=== PATIENT | male | born 1985 | race Caucasian/White ===

== ENCOUNTER 2018-11-02 03:11 | Emergency (ER) | payer BC ==
[2018-11-02 04:14] LABS: Absolute Lymphocytes (CBC) 0.9 K/uL (0.7-4.9); Absolute Monocytes 0.9 K/uL (0.1-1.3); Absolute Neutrophil 11.3 K/uL (1.8-8.0); Basophils % 0.3 % (0-1.3); Eosinophils % 0.7 % (0-4.4); Hematocrit 48.1 % (39.6-49.0); Lymphocytes % 7.1 % (15.3-44.8); MPV 7.8 fL (7.6-11.3); Monocytes % 6.6 % (3.3-12.3); RBC Red Blood Cell Count 5.49 M/uL (4.33-5.43)
[2018-11-02 04:29] LABS: Albumin 3.9 g/dL (3.4-5.0); Bilirubin Direct 0.2 mg/dL (0-0.2); Bilirubin Total 0.9 mg/dL (0.2-1.0); Potassium 3.9 mmol/L (3.5-5.1); Protein, Total 7.1 g/dL (6.4-8.2)
[2018-11-02] MEDS ORDERED: NA CHLORIDE 0.9% 1,000 ML ONE (04:38)
[2018-11-02] MEDS ORDERED: KETOROLAC 30 MG/ML INJ ONE (04:38)
[2018-11-02 05:13] LABS: Urine Blood 3+ (NEG); Urine Glucose NEGATIVE (NEG); Urine Protein 1+ (NEG); Urine Specific Gravity 1.025 (1.005-1.030)
[2018-11-02 05:31] LABS: Blood Morphology Comment NOT SEEN (NOT SEEN); Platelet Estimate ADEQ
--- NOTE | 2018-11-02 05:57 | EDPHYS ---
Physician Documentation [facility] Name: Paco Santoro Age: 32 yrs Sex: Male : 1985 Arrival Date: 11/02/2018 Time: 03:15 Bed 6 Private MD: ED Physician Yinka Li HPI: 11/02 04:35 This 32 yrs old Male presents to ER via Ambulatory with complaints of pkl Vomiting, Back Pain, Abdominal Pain. 04:35 The patient complains of pain in the right flank. The pain radiates to the right lower pkl quadrant. Onset: The symptoms/episode began/occurred just prior to arrival, 3 hour(s) ago. Associated signs and symptoms: Pertinent positives: nausea. The patient has experienced a previous episode, approximately 10 days ago. Historical: - Allergies: 03:35 Iodine; ak1 03:35 'floxacins; ak1 - Home Meds: 03:35 None [Active]; ak1 - PMHx: 03:35 None; ak1 - PSHx: 03:35 None; ak1 - Immunization history:: Adult Immunizations unknown. - Social history:: Smoking status: unknown. - Ebola Screening: : No symptoms or risks identified at this time. ROS: 04:35 Eyes: Negative for injury, pain, redness, and discharge, ENT: Negative for injury, pkl pain, and discharge, Neck: Negative for injury, pain, and swelling, Cardiovascular: Negative for chest pain, palpitations, and edema, Respiratory: Negative for shortness of breath, cough, wheezing, and pleuritic chest pain, Abdomen/GI: Negative for abdominal pain, nausea, vomiting, diarrhea, and constipation. 04:35 Back: Positive for flank pain, on the right. 04:35 : Negative for urinary symptoms. 04:35 MS/extremity: Negative for acute changes. 04:35 Skin: Negative for rash. 04:35 Neuro: Negative for altered mental status. Exam: 04:35 Head/Face: Normocephalic, atraumatic. Eyes: Pupils equal round and reactive to light, pkl extra-ocular motions intact. Lids and lashes normal. Conjunctiva and sclera are non-icteric and not injected. Cornea within normal limits. Periorbital areas with no swelling, redness, or edema. ENT: Nares patent. No nasal discharge, no septal abnormalities noted. Tympanic membranes are normal and external auditory canals are clear. Oropharynx with no redness, swelling, or masses, exudates, or evidence of obstruction, uvula midline. Mucous membranes moist. Neck: Trachea midline, no thyromegaly or masses palpated, and no cervical lymphadenopathy. Supple, full range of motion without nuchal rigidity, or vertebral point tenderness. No Meningismus. Chest/axilla: Normal chest wall appearance and motion. Nontender with no deformity. No lesions are appreciated. Cardiovascular: Regular rate and rhythm with a normal S1 and S2. No gallops, murmurs, or rubs. Normal PMI, no JVD. No pulse deficits. Respiratory: Lungs have equal breath sounds bilaterally, clear to auscultation and percussion. No rales, rhonchi or wheezes noted. No increased work of breathing, no retractions or nasal flaring. Abdomen/GI: Soft, non-tender, with normal bowel sounds. No distension or tympany. No guarding or rebound. No evidence of tenderness throughout. 04:35 Back: pain, that is moderate, of the right flank. 04:35 : Exam negative for acute changes. 04:35 Musculoskeletal/extremity: Exam is negative for acute changes. 04:35 Skin: Exam negative for rash. 04:35 Neuro: Orientation: is normal, Mentation: is normal, Cranial nerves: grossly normal, Motor: is normal. Vital Signs: 03:28 BP 124 / 81; Pulse 56; Resp 16; Temp 98.1(O); Pulse Ox 98% on R/A; Weight 106.59 kg ak1 (R); Height 6 ft. 3 in. (190.50 cm) (R); Pain 3/10; 04:57 BP 115 / 69; Pulse 55; Resp 16; Pulse Ox 96% on R/A; ak1 06:02 BP 101 / 60; Pulse 55; Resp 16; Temp 98.2; Pulse Ox 96% on R/A; Pain 2/10; ak1 03:28 Body Mass Index 29.37 (106.59 kg, 190.50 cm) ak1 MDM: 04:11 Patient medically screened. pkl 05:47 Data reviewed: vital signs, nurses notes, lab test result(s), radiologic studies, CT pkl scan. ED course: Discussed lab. and CT Scan result with patient. Advised to see Dr. Busch today for further evaluations. Patient said he will prefer to fly back to [place] ( Where he is from ) to see the specialist there. 11/02 03:52 Order name: Basic Metabolic Panel; Complete Time: 05:13 ak1 11/02 03:52 Order name: CBC with Diff; Complete Time: 05:59 ak1 11/02 03:52 Order name: Creatinine for Radiology; Complete Time: 05:13 ak1 11/02 03:52 Order name: Hepatic Function; Complete Time: 05:13 ak1 11/02 03:52 Order name: Lipase; Complete Time: 05:13 ak1 11/02 04:27 Order name: Urine Dipstick--Ancillary (enter results); Complete Time: 05:20 [facility] 11/02 03:52 Order name: IV Saline Lock; Complete Time: 04:06 ak1 11/02 03:52 Order name: Labs collected and sent; Complete Time: 04:06 md1 11/02 04:15 Order name: CT Stone Protocol pkl 11/02 04:20 Order name: Urine Dipstick-Ancillary (obtain specimen); Complete Time: 04:26 ak1 11/02 04:57 Order name: Manual Differential; Complete Time: 05:59 EDMS Administered Medications: 04:27 Drug: TORadol 30 mg Route: IVP; Site: right antecubital; ak1 05:52 Follow up: Response: No adverse reaction; Pain is decreased [facility] 04:28 Drug: NS 0.9% 1000 ml Route: IV; Rate: 1000 ml; Site: right antecubital; ak1 05:52 Follow up: IV Status: Completed infusion; IV Intake: 1000ml [facility] Disposition: 11/02/18 05:57 Discharged to Home. Impression: Right ureteral proximal stone with hydronephrosis. - Condition is Stable. - Prescriptions for Tylenol- Codeine #3 300-30 mg Oral Tablet - take 2 tablet by ORAL route every 6 hours As needed; 30 tablet. Flomax 0.4 mg Oral Capsule, Sust. Release 24 hr - take 1 capsule by ORAL route once daily 1/2 hour following the same meal each day; 15 capsule. - Medication Reconciliation Form, Thank You Letter, Antibiotic Education, Prescription Opioid Use form. - Follow up: Private Physician; When: 1 - 2 days; Reason: Re-evaluation by your physician. - Problem is new. - Symptoms have improved. Signatures: Dispatcher [employer] EDYinka Regan MD MD pkl Mehnaz Reagan RN RN ak1 Corrections: (The following items were deleted from the chart) 06:20 05:57 11/02/2018 05:57 Discharged to Home. Impression: Right ureteral proximal stone ak1 with hydronephrosis. Condition is Stable. Forms are Medication Reconciliation Form, Thank You Letter, Antibiotic Education, Prescription Opioid Use. Follow up: Private Physician; When: 1 - 2 days; Reason: Re-evaluation by your physician. Problem is new. Symptoms have improved. pkl
--- NOTE | 2018-11-02 05:57 | ER ---
Nurse's Notes [facility] Name: Paco Santoro Age: 32 yrs Sex: Male : 1985 Arrival Date: 11/02/2018 Time: 03:15 Bed 6 Private MD: Diagnosis: Right ureteral proximal stone with hydronephrosis Presentation: 11/02 03:30 Presenting complaint: Patient states: pain to middle back that radiated to abd at 0100 ak1 with N/V. Transition of care: patient was not received from another setting of care. Onset of symptoms was November 02, 2018. Risk Assessment: Do you want to hurt yourself or someone else? Patient reports no desire to harm self or others. Initial Sepsis Screen: Does the patient meet any 2 criteria? No. Patient's initial sepsis screen is negative. Does the patient have a suspected source of infection? No. Patient's initial sepsis screen is negative. Care prior to arrival: None. 03:30 Acuity: KATE 3 ak1 03:30 Method Of Arrival: Ambulatory ak1 Triage Assessment: 03:35 General: Appears in no apparent distress. Behavior is calm, cooperative, appropriate ak1 for age. Pain: Complains of pain in back and abdomen. EENT: No signs and/or symptoms were reported regarding the EENT system. Neuro: No deficits noted. Cardiovascular: No deficits noted. Respiratory: No deficits noted. GI: Reports lower abdominal pain, upper abdominal pain, nausea, vomiting, at 0100. : No signs and/or symptoms were reported regarding the genitourinary system. Derm: No signs and/or symptoms reported regarding the dermatologic system. Musculoskeletal: No signs and/or symptoms reported regarding the musculoskeletal system. Historical: - Allergies: 03:35 Iodine; ak1 03:35 'floxacins; ak1 - Home Meds: 03:35 None [Active]; ak1 - PMHx: 03:35 None; ak1 - PSHx: 03:35 None; ak1 - Immunization history:: Adult Immunizations unknown. - Social history:: Smoking status: unknown. - Ebola Screening: : No symptoms or risks identified at this time. Screenin:37 Abuse screen: Denies threats or abuse. Denies injuries from another. Nutritional ak1 screening: No deficits noted. Tuberculosis screening: No symptoms or risk factors identified. Fall Risk None identified. Assessment: 03:38 GI: Abdomen is round non-distended, Bowel sounds present X 4 quads. Abd is soft and non ak1 tender X 4 quads. 04:29 Reassessment: Patient appears in no apparent distress at this time. No changes from ak1 previously documented assessment. Patient and/or family updated on plan of care and expected duration. Pain level reassessed. Patient is alert, oriented x 3, equal unlabored respirations, skin warm/dry/pink. 06:01 Reassessment: Patient appears in no apparent distress at this time. No changes from ak1 previously documented assessment. Patient and/or family updated on plan of care and expected duration. Pain level reassessed. Patient is alert, oriented x 3, equal unlabored respirations, skin warm/dry/pink. pt stated he would follow up with his PCP in [place] where he lives Patient states feeling better. Vital Signs: 03:28 BP 124 / 81; Pulse 56; Resp 16; Temp 98.1(O); Pulse Ox 98% on R/A; Weight 106.59 kg ak1 (R); Height 6 ft. 3 in. (190.50 cm) (R); Pain 3/10; 04:57 BP 115 / 69; Pulse 55; Resp 16; Pulse Ox 96% on R/A; ak1 06:02 BP 101 / 60; Pulse 55; Resp 16; Temp 98.2; Pulse Ox 96% on R/A; Pain 2/10; ak1 03:28 Body Mass Index 29.37 (106.59 kg, 190.50 cm) ak1 ED Course: 03:15 Patient arrived in ED. es 03:28 Brittney Reagan, RN is Primary Nurse. ak1 03:28 Arm band placed on Patient placed in an exam room, on a stretcher, on pulse oximetry, ak1 Patient notified of wait time. 03:32 Triage completed. ak1 03:37 Patient has correct armband on for positive identification. Placed in gown. Bed in low ak1 position. Call light in reach. Side rails up X 1. Pulse ox on. NIBP on. 04:07 Initial lab(s) drawn, by me, sent to lab. Inserted saline lock: 20 gauge in right ak1 antecubital area, using aseptic technique. Blood collected. 04:11 Yinka Li MD is Attending Physician. pkl 04:29 Urine collected: clean catch specimen, brittney colored. ak1 04:54 CT Stone Protocol In Process Unspecified. EDMS 05:53 No provider procedures requiring assistance completed. ak1 06:00 IV discontinued, intact, bleeding controlled, No redness/swelling at site. Pressure ak1 dressing applied. Administered Medications: 04:27 Drug: TORadol 30 mg Route: IVP; Site: right antecubital; ak1 05:52 Follow up: Response: No adverse reaction; Pain is decreased ak1 04:28 Drug: NS 0.9% 1000 ml Route: IV; Rate: 1000 ml; Site: right antecubital; ak1 05:52 Follow up: IV Status: Completed infusion; IV Intake: 1000ml ak1 Intake: 05:52 IV: 1000ml; Total: 1000ml. ak1 Outcome: 05:53 Condition: good ak1 05:57 Discharge ordered by . pkl 06:01 Discharged to home ambulatory. ak1 06:01 Discharge instructions given to patient, Instructed on discharge instructions, follow up and referral plans. no drinking with medication, no driving heavy equipment, medication usage, Demonstrated understanding of instructions, follow-up care, medications, Prescriptions given X 2. 06:20 Patient left the ED. ak1 Signatures: Dispatcher [employer] EDDC Yinka Li MD MD pkl Salyer, Edna es Krenek, Amber, RN RN ak1
--- NOTE | 2018-11-02 10:38 | RAD REPORT ---
EXAM DESCRIPTION: CT ABDOMEN AND PELVIS WITHOUT CONTRAST CLINICAL HISTORY: Right flank pain COMPARISON: None. TECHNIQUE: Axial unenhanced [address] imaging of the abdomen and pelvis performed. Reformatted coronal and sagittal images reviewed. A dose reduction technique was utilized with automated exposure control according to patient size. FINDINGS: LOWER THORAX: Clear lung bases. Heart is normal in size. No pericardial fluid. ABDOMEN: LIVER/GALLBLADDER: Normal liver. Normal gallbladder. SPLEEN/PANCREAS: Mild splenic enlargement of 13.1 cm. Normal pancreas. KIDNEYS/ADRENAL GLANDS: Normal adrenal glands. Normal left kidney. Mild fullness of the right renal pelvis. 2 mm nonobstructing inferior right renal pelvic stone. Proximal right ureteral 9 mm stone. RETROPERITONEAL VESSELS/NODES: The aorta and inferior vena cava are normal in caliber. No adenopathy . BOWEL: Small hiatal hernia. Normal remaining stomach. Small bowel loops appear normal. The appendix is normal within the right hemipelvis. Normal colon. MESENTERY/PERITONEUM: No adenopathy. No ascites or free air. PELVIS: BLADDER: Normal bladder although not fully distended. GENITAL ORGANS: Normal prostate. PERITONEUM: No free fluid or adenopathy. BONES AND SOFT TISSUES: Normal lumbar lordosis. Vertebral body and disc space height are within norm al limits. Intact bony pelvis. Normal hips. IMPRESSION: 1. 9 mm proximal right ureteral stone resulting in mild right hydronephrosis. Addition al 2 mm inferior right renal pelvic nonobstructing stone is present. 2. Small hiatal hernia.. 3. Mild splenomegaly. Electronically signed by: Janey Lara DO 11/02/2018 5:00 AM CDT Due to temporary technical issues with the PACS/Fluency reporting system, reports are being signed by the in house radiologist as a courtesy to ensure prompt reporting. The interpreting radiologist is f ully responsible for the content of the report.
== END 2018-11-02 06:20 | disposition home or self-care (01) ==
LOC: ER 03:11
DX: N13.2 Hydronephrosis with renal and ureteral calculous obstruction (principal); Z88.1 Allergy status to other antibiotic agents; Z91.048 Other nonmedicinal substance allergy status
CPT/HCPCS: 36415; 74176; 76377; 80048; 80076; 81003; 83690; 85025; 96361; 96374; 99284; J7030